=== PATIENT | female | born 1980 | race Two or more races ===

== ENCOUNTER → 2016-08-25 | Outpatient (CLI) | payer BC ==
[~2016-08-25] MED LIST: IOHEXOL 240 MG/ML 50ML VIAL. PO ONE; IOHEXOL 300 MG/ML 75 ML VIAL. IV ONE; LEVO25TA2 PO; LISI2.5T PO
--- NOTE | 2016-08-25 09:50 | RAD ---
CT of the abdomen with contrast, 08/25/2016: History: Upper abdominal pain Multidetector CT imaging was performed following oral and IV administration of contrast. There is a tiny 5 mm low-density focus in the anterior aspect of the liver, too small to definitively characterize. This is most likely a cyst or hepatic hematoma. The gallbladder is unremarkable. No pancreatic abnormality is seen. There are tiny calcifications in the spleen compatible with old granulomatous disease. The spleen is within normal limits in size. No renal or adrenal abnormality is detected. The abdominal aorta is unremarkable. No abdominal adenopathy is evident. There are surgical sutures related to the stomach. There appears to be a small hiatal hernia. The bowel loops are not dilated. No free fluid or free air is evident in the abdomen. IMPRESSION: 1. Probable tiny hepatic cyst. 2. Previous gastric surgery. 3. Small hiatal hernia. 4. No acute abdominal abnormality is detected. PQRS Compliance Statement: One or more of the following individualized dose reduction techniques were utilized for this examination: 1. Automated exposure control 2. Adjustment of the mA and/or kV according to patient size 3. Use of iterative reconstruction technique
== END | disposition home or self-care (01) ==
LOC: CT 08:02
PROVIDERS: ATTEND Family Medicine
DX: K44.9 Diaphragmatic hernia without obstruction or gangrene (principal); D71 Functional disorders of polymorphonuclear neutrophils; D73.89 Other diseases of spleen
CPT/HCPCS: 74160; Q9966; Q9967

== ENCOUNTER → 2017-07-04 | Outpatient (CLI) | payer BC ==
[~2017-07-04] MED LIST changes: -IOHEXOL 240 MG/ML 50ML VIAL. PO ONE; -IOHEXOL 300 MG/ML 75 ML VIAL. IV ONE; -LEVO25TA2 PO; +LEVO25TA55 PO
--- NOTE | 2017-07-04 09:48 | RAD ---
2 views of the Chest 07/04/2017 2:00 AM Indication: CHEST CONGESTION Comparison: February 19, 2016 Findings: There is no focal consolidation or infiltrate identified. There is no effusion or pneumothorax. The cardiomediastinal silhouette and pulmonary vasculature are within normal limits. No osseous abnormality is identified. Impression: No evidence of acute cardiopulmonary process.
== END | disposition home or self-care (01) ==
LOC: PMG 08:50
PROVIDERS: ATTEND Physician Assistant Medical
DX: R09.89 Other specified symptoms and signs involving the circulatory and respiratory systems (principal)
CPT/HCPCS: 71046

== ENCOUNTER → 2017-11-07 | Outpatient (CLI) | payer BC ==
[~2017-11-07] MED LIST changes: +CIPR250T30 PO; +IOHEXOL 240 MG/ML 50ML VIAL. ONE; +IOHEXOL 300 MG/ML 75 ML VIAL. IV ONE; +TRAM-48 PO
--- NOTE | 2017-11-07 16:28 | RAD ---
CT of the abdomen with contrast 11/07/2017 4:19 PM Indication: FOLLOW UP FOR COLON MUCOSAL INFLAMMATION. HYSTERECTOMY 09-14-2017. PRIOR GB REMOVAL AND HERNIA SURGERY x 2. ULKI958/75ML, OMNI 240/30ML IN BREEZA Comparison study: CT of the abdomen and pelvis August 25, 2016 Technique: Multidetector CT imaging of the abdomen and pelvis was performed following the administration of IV contrast. Findings: The partially visualized lung bases demonstrate no acute abnormality. Interval cholecystectomy noted. The liver, spleen, bilateral adrenal glands, bilateral kidneys, and pancreas, are grossly unremarkable. Postsurgical changes following appears to be sleeve gastrectomy noted. The proximal most and distal most colon are not included on this study. Visualized portions of the bowel have a grossly unremarkable appearance. The appendix is partially visualized and appears to be grossly unremarkable. No gross pneumoperitoneum or free fluid within the abdomen is identified. No acute osseous changes are identified. Impression: 1. No evidence of acute intra-abdominal reality 2. Interval cholecystectomy. CT DOSING PQRS STATEMENT: One or more of the following individualized dose reduction techniques were utilized for this examination: 1. Automated exposure control 2. Adjustment of the mA and/or kV according to patient size 3. Use of iterative reconstruction technique Electronically signed by: Silvestre Poon MD (11/07/2017 4:24 PM) [id number]
== END | disposition home or self-care (01) ==
LOC: CT 11:44
PROVIDERS: ATTEND Internal Medicine Gastroenterology
DX: K51.40 Inflammatory polyps of colon without complications (principal); I10 Essential (primary) hypertension; Z90.49 Acquired absence of other specified parts of digestive tract; Z90.710 Acquired absence of both cervix and uterus
CPT/HCPCS: 74160; Q9966; Q9967

== ENCOUNTER 2017-11-13 08:25 | Emergency (ER) | payer BC ==
[~2017-11-13] VITALS: Ht 172.7 cm; Wt 112.4 kg
[~2017-11-13 08:25] MED LIST changes: -CIPR250T30 PO; -IOHEXOL 240 MG/ML 50ML VIAL. ONE; -IOHEXOL 300 MG/ML 75 ML VIAL. IV ONE; -TRAM-48 PO
[2017-11-13] MEDS ORDERED: IV NORMAL SALINE 1,000ML 1,000 ML IV SCH (08:45)
[2017-11-13] MEDS ORDERED: KETOROLAC 30 MG/ML VIAL. IV ONE (08:45)
[2017-11-13] MEDS ORDERED: ONDANSETRON PF 4 MG/2 ML VIAL. IV ONE (08:45)
[2017-11-13 09:16] LABS: BASO % 1 % (0-3); EOS % 1 % (0-3); HEMATOCRIT 35.3 % (36.0-47.0); HEMOGLOBIN 11.7 g/dL (12.0-15.5); LYMPH # 1.5 x10^3/uL (1.0-4.8); LYMPH % 23 % (24-48); MEAN CORPUSCULAR HEMOGLOBIN 27 pg (25-35); MEAN CORPUSCULAR HGB CONC 33 g/dL (31-37); MEAN CORPUSCULAR VOLUME 82 fL (79-100); MONO # 0.5 x10^3/uL (0.0-1.1); MONO % 8 % (0-9); NEUT # 4.2 x10^3uL (1.8-7.7); NEUT % 67 % (31-73); PLATELET COUNT 287 x10^3/uL (140-400); RED BLOOD COUNT 4.29 x10^6/uL (3.50-5.40); WHITE BLOOD COUNT 6.3 x10^3/uL (4.0-11.0)
[2017-11-13 09:36] LABS: ALBUMIN 3.1 g/dL (3.4-5.0); ALBUMIN/GLOBULIN RATIO 0.8 (1.0-1.7); CALCIUM 8.5 mg/dL (8.5-10.1); CREATININE 0.8 mg/dL (0.6-1.0); GFR 79.9; POTASSIUM 3.6 mmol/L (3.5-5.1); TOTAL BILIRUBIN 0.7 mg/dL (0.2-1.0); TOTAL PROTEIN 7.1 g/dL (6.4-8.2)
--- NOTE | 2017-11-13 09:38 | RAD ---
Examination: Frontal supine and upright views of the abdomen HISTORY: History of pelvic pain for a few days, abdominal pain COMPARISON: None available FINDINGS: Cholecystectomy clips identified. No evidence of free air noted under the hemidiaphragms. The bowel gas pattern appears unremarkable. Surgical changes identified in the left epigastric region. Feces and gas noted in the colon. IMPRESSION: 1. Unremarkable bowel gas pattern. Electronically signed by: Earl Day MD (11/13/2017 9:35 AM) [facility]
[2017-11-13 10:12] LABS: BACTERIA,URINE MOD /HPF (0-FEW); BILIRUBIN,URINE NEG (NEG); CLARITY,URINE HAZY; COLOR,URINE YELLOW; GLUCOSE,URINE NEG (NEG); NITRITE,URINE NEG (NEG); SQUAMOUS EPITHELIAL CELL,UR MOD /LPF; UROBILINOGEN,URINE 1 mg/dL (0.2 mg/dL); WBC,URINE 20-40 /HPF (0-4)
[2017-11-13] MEDS ORDERED: TRAM-48 PO (10:38)
[2017-11-13] MEDS ORDERED: CIPR250T30 PO (10:38)
--- NOTE | 2017-11-13 10:38 | PHYS DOC ---
Past History Past Medical History: Hypertension, Other Past Surgical History: Cholecystectomy, Hysterectomy, Other Alcohol Use: None Drug Use: None Adult General Chief Complaint Chief Complaint: ABDOMINAL PAIN [facility] HPI 37-year-old female patient states she has had chronic abdominal pain for more than one year and seen by primary care physician and GI specialist and had CT of abdomen and pelvis on November 07. Patient complaining of increasing lower abdominal pain for the last 4 days as a constant pain with episodes of sharp pain during bowel movement or passing gas and rated her pain 10 over 10. Patient complaining of 3 episodes of bowel movement yesterday with loose stool at the end of bowel movement. Patient denies radiation of pain, fever and chills , urinary symptoms, history of the same pain. Patient complaining of anorexia and chills. Review of Systems Review of Systems Constitutional: Denies fever or chills [] Eyes: Denies change in visual acuity, redness, or eye pain [] HENT: Denies nasal congestion or sore throat [] Respiratory: Denies cough or shortness of breath [] Cardiovascular: No additional information not addressed in HPI [] GI: Reports abdominal pain, nausea, diarrhea, denies vomiting and bloody stools [] : Denies dysuria or hematuria [] Musculoskeletal: Denies back pain or joint pain [] Integument: Denies rash or skin lesions [] Neurologic: Denies headache, focal weakness or sensory changes [] Endocrine: Denies polyuria or polydipsia [] All other systems were reviewed and found to be within normal limits, except as documented in this note. Current Medications Current Medications Current Medications Medications (Trade) Dose Ordered Sig/[facility] Start Time Stop Time Status Last Admin Dose Admin Ceftriaxone Sodium 1 gm/ Sodium Chloride 50 ml @ 100 mls/hr 1X ONCE 11/13/17 10:30 11/13/17 10:34 DC Ceftriaxone Sodium (Rocephin) 1 gm 1X ONCE 11/13/17 10:45 11/13/17 10:46 Ketorolac Tromethamine (Toradol) 30 mg 1X ONCE 11/13/17 08:45 11/13/17 08:46 DC 11/13/17 09:02 30 MG Ondansetron HCl (Zofran) 4 mg 1X ONCE 11/13/17 08:45 11/13/17 08:46 DC 11/13/17 09:00 4 MG Sodium Chloride 1,000 ml @ 1,000 mls/hr Q1H 11/13/17 08:45 11/13/17 09:44 DC 11/13/17 08:59 1,000 MLS/HR Allergies Allergies Allergies Coded Allergies Type Severity Reaction Last Updated Verified No Known Drug Allergies 11/13/17 No Physical Exam Physical Exam Constitutional: Well developed, well nourished, mild distress, non-toxic appearance. [] HENT: Normocephalic, atraumatic, oropharynx dry, no oral exudates, nose normal. [] Eyes: PERRLA, EOMI, conjunctiva normal, no discharge. [] Neck: Normal range of motion, no tenderness, supple, no stridor. [] Cardiovascular:Heart rate regular rhythm, no murmur [] Lungs & Thorax: Bilateral breath sounds clear to auscultation [] Abdomen: Bowel sounds normal, soft, suprapubic guarding, no tenderness, no masses, no pulsatile masses. [] Skin: Warm, dry, no erythema, no rash. [] Back: No tenderness, no CVA tenderness. [] Extremities: No tenderness, no cyanosis, no clubbing, ROM intact, no edema. [] Neurologic: Alert and oriented X 3, normal motor function, normal sensory function, no focal deficits noted. [] Psychologic: Affect normal, judgement normal, mood normal. [] Current Patient Data Vital Signs Vital Signs Date Time Temp Pulse Resp B/P (MAP) Pulse Ox O2 Delivery O2 Flow Rate FiO2 11/13/17 08:25 98.6 83 18 99 Room Air Lab Results Laboratory Tests Test 11/13/17 09:02 11/13/17 09:50 White Blood Count 6.3 x10^3/uL (4.0-11.0) Red Blood Count 4.29 x10^6/uL (3.50-5.40) Hemoglobin 11.7 g/dL (12.0-15.5) L Hematocrit 35.3 % (36.0-47.0) L Mean Corpuscular Volume 82 fL (79-100) Mean Corpuscular Hemoglobin 27 pg (25-35) Mean Corpuscular Hemoglobin Concent 33 g/dL (31-37) Red Cell Distribution Width 13.0 % (11.5-14.5) Platelet Count 287 x10^3/uL (140-400) Neutrophils (%) (Auto) 67 % (31-73) Lymphocytes (%) (Auto) 23 % (24-48) L Monocytes (%) (Auto) 8 % (0-9) Eosinophils (%) (Auto) 1 % (0-3) Basophils (%) (Auto) 1 % (0-3) Neutrophils # (Auto) 4.2 x10^3uL (1.8-7.7) Lymphocytes # (Auto) 1.5 x10^3/uL (1.0-4.8) Monocytes # (Auto) 0.5 x10^3/uL (0.0-1.1) Eosinophils # (Auto) 0.0 x10^3/uL (0.0-0.7) Basophils # (Auto) 0.0 x10^3/uL (0.0-0.2) Sodium Level 138 mmol/L (136-145) Potassium Level 3.6 mmol/L (3.5-5.1) Chloride Level 104 mmol/L (98-107) Carbon Dioxide Level 25 mmol/L (21-32) Anion Gap 9 (6-14) Blood Urea Nitrogen 8 mg/dL (7-20) Creatinine 0.8 mg/dL (0.6-1.0) Estimated GFR (Cockcroft-Gault) 79.9 BUN/Creatinine Ratio 10 (6-20) Glucose Level 88 mg/dL (70-99) Calcium Level 8.5 mg/dL (8.5-10.1) Total Bilirubin 0.7 mg/dL (0.2-1.0) Aspartate Amino Transferase (AST) 19 U/L (15-37) Alanine Aminotransferase (ALT) 22 U/L (14-59) Alkaline Phosphatase 118 U/L (46-116) H Total Protein 7.1 g/dL (6.4-8.2) Albumin 3.1 g/dL (3.4-5.0) L Albumin/Globulin Ratio 0.8 (1.0-1.7) L Lipase 143 U/L (73-393) Urine Collection Type Void Urine Color Yellow Urine Clarity Hazy Urine pH 6.0 Urine Specific [place] 1.025 Urine Protein 30 mg/dl (NEG-TRACE) Urine Glucose (UA) Neg mg/dL (NEG) Urine Ketones (Stick) Neg mg/dL (NEG) Urine Blood Neg (NEG) Urine Nitrite Neg (NEG) Urine Bilirubin Neg (NEG) Urine Urobilinogen Dipstick 1 mg/dL (0.2 mg/dL) Urine Leukocyte Esterase Trace (NEG) Urine RBC 1-2 /HPF (0-2) Urine WBC 20-40 /HPF (0-4) Urine Squamous Epithelial Cells Mod /LPF Urine Bacteria Mod /HPF (0-FEW) Urine Mucus Mod /LPF EKG EKG [] Radiology/Procedures Radiology/Procedures [[address] [address] IMAGING REPORT Signed PATIENT: DIANE RODGERS ACCOUNT: [id number] : 1980 LOCATION: ER AGE: 37 SEX: F EXAM STATUS: PRE ER ORD. PHYSICIAN: GENNA MEEKS MD REASON: abdominal pain PROCEDURE: ABDOMEN SUPINE & UPRIGHT Examination: Frontal supine and upright views of the abdomen HISTORY: History of pelvic pain for a few days, abdominal pain COMPARISON: None available FINDINGS: Cholecystectomy clips identified. No evidence of free air noted under the hemidiaphragms. The bowel gas pattern appears unremarkable. Surgical changes identified in the left epigastric region. Feces and gas noted in the colon. IMPRESSION: 1. Unremarkable bowel gas pattern. Electronically signed by: Earl Day MD (11/13/2017 9:35 AM) [facility] DICTATED AND SIGNED BY: EARL DAY MD DATE: 11/13/17 0933 CC: GENNA MEEKS MD; ANTIONETTE HEALY MD ~ ] Course & Med Decision Making Course & Med Decision Making Pertinent Labs and Imaging studies reviewed. (See chart for details) Evolution of patient in ER showed 27-year-old female patient with complaining of increasing lower abdominal pain on top of chronic abdominal pain. Patient had suprapubic guarding. Labs showed UTI and patient treated with IV fluid and Zofran and Toradol and Rocephin and felt better. Patient instructed to follow- up with her GI appointment next week. [] Dragon Disclaimer Dragon Disclaimer This electronic medical record was generated, in whole or in part, using a voice recognition dictation system. Departure Departure: Impression: Primary Impression: Urinary tract infection Additional Impressions: Lower abdominal pain Anemia Chronic abdominal pain Disposition: HOME, SELF-CARE (at 1040) Condition: IMPROVED Referrals: ANTIONETTE HEALY MD (PCP) Patient Instructions: Abdominal Pain, Anemia, FAQs, Urinary Tract Infection Additional Instructions: Drink plenty of liquids Follow-up with your primary care physician in 3-5 days Return to ER if not getting better Follow-up with your GI appointment next week Scripts Tramadol Hcl (ULTRAM) 50 Mg Tablet 50 MG PO PRN Q6HRS PRN for PAIN, #14 TAB Prov: GENNA MEEKS MD 11/13/17 Ciprofloxacin Hcl (CIPRO) 250 Mg Tablet 1 TAB PO BID, #14 TAB Prov: GENNA MEEKS MD 11/13/17 Problem Qualifiers GENNA MEEKS MD Nov 13, 2017 10:38
[2017-11-13] MEDS ORDERED: cefTRIAXone IV Push 1 GM VIAL. IVP ONE (10:45)
[2017-11-13 10:56] VITALS: BP 116/80
== END 2017-11-13 10:56 | disposition home or self-care (01) ==
LOC: ER 08:25
DX: N39.0 Urinary tract infection, site not specified (principal); R19.7 Diarrhea, unspecified; D64.9 Anemia, unspecified; G89.29 Other chronic pain; I10 Essential (primary) hypertension; Z90.49 Acquired absence of other specified parts of digestive tract; Z90.710 Acquired absence of both cervix and uterus
CPT/HCPCS: 36415; 74021; 80053; 81001; 83690; 85025; 87086; 96361; 96374; 96375; 99285; J0696; J1885; J2405; J7030

== ENCOUNTER → 2021-07-13 | Outpatient (CLI) | payer BC ==
[~2021-07-13] MED LIST changes: +CIPR250T30 PO; -LISI2.5T PO; +LISI2.5T12 PO; +TRAM-48 PO
--- NOTE | 2021-07-17 15:26 | RAD ---
BILATERAL DIGITAL SCREENING 2-D AND 3-D MAMMOGRAM INDICATION: Routine screening. COMPARISON: October 27, 2018, December 19, 2017 November 18, 2014 Interpretation was made using CAD. FINDINGS: Breast Density: There are scattered areas of fibroglandular density. RIGHT BREAST: There is an oval circumscribed 0.7 cm mass in the lower inner quadrant near the 5:00 lo cation, 7 cm inferior to the nipple line. No suspicious calcifications or areas of distortion are see n. LEFT BREAST: No suspicious masses, calcifications or areas of architectural distortion are seen. IMPRESSION: 1. Indeterminate right breast mass. A right breast ultrasound is recommended. This likely lies near the 5:00, 7 cm location, anterior depth. 2. Stable left mammogram with no imaging evidence of malignancy. ASSESSMENT: BI-RADS 0. Incomplete assessment. Additional imaging is necessary. RECOMMENDATION: Right breast ultrasound The facility will notify the patient of the results via mail. Patient information will be entered int o the mammography reminder system with a target recall date for the next mammogram. A reminder letter will be generated by the facility. Electronically signed by: Ashley Lucio MD (07/17/2021 3:24 PM) [id number]
== END ==
LOC: MAMMO 09:37
PROVIDERS: ATTEND Physician Assistant
DX: Z12.31 Encounter for screening mammogram for malignant neoplasm of breast (principal)
CPT/HCPCS: 77063; 77067

== ENCOUNTER → 2021-07-30 | Outpatient (CLI) | payer BC, OTHER ==
--- NOTE | 2021-07-30 15:54 | RAD ---
EXAMINATION: US BREAST RT CLINICAL HISTORY: Callback indeterminate right breast mass TECHNIQUE: Targeted right breast ultrasound with grayscale images obtained in the lower inner quadran t and axilla. COMPARISON: Bilateral mammogram 07/13/2021 FINDINGS: No sonographic correlate for the mammographic finding visualized. No evidence of suspicious mass or d iscrete abnormality in the region of interest. IMPRESSION: No sonographic correlate appreciated for the mammographic finding in the right lower quadrant, howeve r, this is most likely a benign mass based on mammographic appearance. Recommend follow-up diagnostic mammogram in 6 months. BI-RADS ASSESSMENT: Category 3: Probably Benign RECOMMENDATION: Right breast diagnostic mammogram in 6 months and possible targeted right breast ultrasound if indica kaila. PQRS compliance statement - Patient information was entered into a reminder system with a target due date for the next mammogram. "Our facility is accredited by the [employer] Mammography Program." Electronically signed by: Osmin Butcher DO (07/30/2021 3:51 PM) [id number]
== END ==
LOC: US 15:00
PROVIDERS: ATTEND Physician Assistant
DX: R92.2 Inconclusive mammogram (principal)
CPT/HCPCS: 76641